=== PATIENT | female | born 2000 | race Hispanic/Latino ===

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

== ENCOUNTER 2021-04-13 08:42 | Emergency (ER) | payer SELFPAY ==
[2021-04-13 09:32] LABS: BILIRUBIN,URINE NEGATIVE (NEGATIVE); COLOR,URINE YELLOW (YELLOW); GLUCOSE, URINE (UA) NEGATIVE (NEGATIVE); KETONES,URINE NEGATIVE (NEGATIVE); LEUKOCYTE ESTERASE ,URINE NEGATIVE (NEGATIVE); NITRATE,URINE NEGATIVE (NEGATIVE); OCCULT BLOOD,URINE NEGATIVE (NEGATIVE); PROTEIN,URINE NEGATIVE (NEGATIVE); UROBILINOGEN,URINE 0.2 mg/dL (0.2-1.0)
[2021-04-13 09:33] LABS: APPEARANCE,URINE TURBID (CLEAR)
[2021-04-13 09:34] LABS: BASOPHILS % (AUTO) 0.3 % (0.0-5.0); EOSINOPHILS % (AUTO) 2.1 % (0.0-8.0); HEMATOCRIT 41.7 % (36-48); LYMPHOCYTES % (AUTO) 25.9 % (21.0-51.0); MEAN CORPUSCULAR HEMOGLOBIN 29.6 pg (27.0-33.0); MEAN CORPUSCULAR HGB CONC 33.6 g/dL (32.0-36.0); MEAN CORPUSCULAR VOLUME 88.2 fL (80-100); MONOCYTES % (AUTO) 7.6 % (3.0-13.0); NEUTROPHILS % (AUTO) 63.6 % (40.0-77.0); PLATELET COUNT (AUTO) 252 K/uL (130-400); RED BLOOD CELL COUNT(AUTO) 4.73 MIL/uL (4.00-5.50); RED CELL DISTRIBUTION WIDTH 12.3 % (11.0-15.5); WHITE BLOOD COUNT (AUTO) 7.8 K/uL (4.8-10.8)
[2021-04-13 09:39] LABS: HCG,QUAL RESULT NEGATIVE (NEGATIVE)
[2021-04-13 09:45] LABS: BACTERIA,URINE Many /HPF (None Seen)
[2021-04-13 09:47] LABS: WBC,URINE 0-1 /HPF (0-1)
[2021-04-13] MEDS ORDERED: PHENAZOPYRIDINE HCL 200 MG TABLET ONE (12:14)
[2021-04-15 18:09] LABS: CHLAMYDIA DNA N.A.AMPLIFY Negative (Negative)
== END 2021-04-13 15:05 | disposition home or self-care (01) ==
LOC: EDH 08:42
DX: R10.2 Pelvic and perineal pain (principal); R30.0 Dysuria; F41.9 Anxiety disorder, unspecified
CPT/HCPCS: 36415; 76830; 81001; 81025; 85025; 87088; 87486; 87797